=== PATIENT | male | born 1995 | race Caucasian/White ===

== ENCOUNTER 2018-08-10 16:19 | Emergency (ER) | payer OTHER, MEDICAID ==
[~2018-08-10] VITALS: Ht 170.2 cm; Wt 84.1 kg
[2018-08-10 17:08] VITALS: BP 145/104
== END 2018-08-10 18:35 | disposition left against medical advice (07) ==
LOC: EMS 16:19
DX: T40.1X1A Poisoning by heroin, accidental (unintentional), initial encounter (principal); Y92.89 Other specified places as the place of occurrence of the external cause